=== PATIENT | male | born 1975 | race Caucasian/White ===

== ENCOUNTER 2020-01-17 14:04 | Outpatient (REF) | payer MEDICAID, SELFPAY ==
--- NOTE | 2020-01-17 14:11 | CT_ITS ---
EXAMINATION: CT PELVIS WITHOUT CONTRAST CLINICAL INFORMATION: Laceration left gluteal muscles. Evaluate for foreign body/glass. COMPARISON: None TECHNIQUE: Helical scanning was performed with submillimeter collimation through the pelvis. Sagittal and coronal multiplanar 2-D reconstructions were obtained. This CT examination was performed using dose optimization techniques as appropriate, variously including the following: *Automated exposure control *Adjustment of mA and/or kV according to patient size (this includes techniques or standardized protocols for targeted exams where dose is matched to indication/reason for exam; i.e. extremities or head) *Use of iterative reconstruction technique DLP: 504 mGy-cm FINDINGS: PELVIS: There is mild diverticulosis of the colon. Small and large bowel is otherwise unremarkable. The prostate gland does not appear enlarged. The bladder is unremarkable. Vascular structures are unremarkable. No ascites or adenopathy is seen. No significant hernia is seen. No foreign body is seen. There is slight skin thickening and stranding of the subcutaneous fat in the left gluteal region. No abnormal air or fluid collection is seen. OSSEOUS STRUCTURES: There is left-sided facet arthritis at L5-S1. Bony structures are otherwise unremarkable. CT/CT pelvis wo con IMPRESSION: No foreign body seen. Mild diverticulosis of the colon.
== END 2020-01-17 14:05 | disposition home or self-care (01) ==
LOC: HO.CT 14:04
PROVIDERS: Visit Provider Internal Medicine
DX: S31.821A Laceration without foreign body of left buttock, initial encounter (principal); X58.XXXA Exposure to other specified factors, initial encounter; Y93.9 Activity, unspecified; Y92.9 Unspecified place or not applicable; Y99.8 Other external cause status
CPT/HCPCS: 72192

== ENCOUNTER → 2020-05-09 09:56 | Outpatient (REF) | payer MEDICAID, SELFPAY | LOC: HO.SL 09:56 | PROVIDERS: PCP Internal Medicine; Visit Provider Internal Medicine | DX: G47.9 Sleep disorder, unspecified (principal); R06.83 Snoring | CPT/HCPCS: 95806 ==

== ENCOUNTER → 2020-05-29 14:23 | Outpatient (BNVA) | payer MEDICAID, SELFPAY | PROVIDERS: PCP Internal Medicine; Visit Provider Internal Medicine | DX: E66.9 Obesity, unspecified (principal); G47.33 Obstructive sleep apnea (adult) (pediatric) | CPT/HCPCS: 99202 ==

== ENCOUNTER 2020-09-20 13:04 | Outpatient (REF) | payer MEDICAID, SELFPAY ==
--- NOTE | ~2020-09-20 | MR_ITS ---
EXAMINATION: MR LUMBAR SPINE WITHOUT CONTRAST CLINICAL INFORMATION: Radiculopathy with pain left leg. COMPARISON: CT scan of the pelvis 01/17/2020. TECHNIQUE: MRI of the lumbar spine was obtained using routine sequences without contrast. FINDINGS: VERTEBRAL BODIES AND PARASPINAL STRUCTURES: There is mild hyperlordosis in the lower lumbar spine, and there is a mild retrolisthesis of L4 on L5. There is mild loss of intervertebral disc height and signal from the disc at L4-L5. There are small Schmorl's nodes at multiple levels in the mid and upper lumbar spine. The vertebral bodies have normal height and contour and no fractures are demonstrated. Overall, marrow signal is homogenous. The visualized retroperitoneal and pelvic structures are unremarkable. CONUS MEDULLARIS AND CAUDA EQUINA: Normal, terminating at the level of T12-L1. The lower thoracic spinal cord appears normal. The cauda equina nerve roots and filum terminale appear normal. SPINAL LEVELS: L1-L2: The facet joints appear normal bilaterally. Disc contour is normal. There is no central stenosis or foraminal narrowing. L2-L3: The facet joints appear normal bilaterally. Disc contour is normal. There is no central stenosis or foraminal narrowing. L3-L4: The facet joints appear normal. Disc contour is normal. There is no central stenosis or foraminal narrowing. L4-L5: There is moderate bilateral facet arthropathy with facet joint effusions. There is a broad-based posterior disc protrusion which distorts the ventral thecal sac. There is equivocal impingement on the traversing L5 nerve roots bilaterally. There is no central stenosis, and there is no foraminal nerve root impingement. L5-S1: There is severe left and mild to moderate right facet arthropathy. There is a small synovial cyst posteriorly off the left facet joint. The left lamina shorter compared to the right. Posterior disc contour is normal. The neural foramina are patent bilaterally. There is no central stenosis. MR/MR lumbar spine wo con IMPRESSION: 1. At L4-L5 there is moderate facet arthropathy and there is a broad-based posterior disc protrusion with equivocal impingement on the traversing L5 nerve roots. There is no central stenosis or foraminal nerve root impingement. 2. There is severe left facet arthropathy at L5-S1 with with a synovial cyst posteriorly. The left L5 lamina is shorter compared to the right. Posterior disc contour is normal and there is no foraminal narrowing or central stenosis.
== END 2020-09-20 13:05 | disposition home or self-care (01) ==
LOC: HO.MRI 13:04
PROVIDERS: PCP Internal Medicine; Visit Provider Internal Medicine
DX: M54.16 Radiculopathy, lumbar region (principal); M79.605 Pain in left leg
CPT/HCPCS: 72148

== ENCOUNTER 2021-01-06 12:41 | Outpatient (REF) | payer MEDICAID, SELFPAY ==
[2021-01-06 12:55] LABS: MANUAL DIFF FLAG NO
[2021-01-06 13:38] LABS: Basophils Percent Auto 0.4 % (0-2); Eosinophils Absolute Auto 0.2 X10*3/uL (0.0-0.4); Eosinophils Percent Auto 3.1 % (0-4); Hematocrit 45.7 % (42.0-52.0); Hemoglobin 15.6 g/dl (14.0-18.0); Imm Gran Abs Auto 0.03 X10*3/uL (0.00-0.03); Imm Gran Pct Auto 0.4 % (0.0-0.4); Lymphocytes Absolute Auto 1.6 X10*3/uL (1.2-4.9); Lymphocytes Percent Auto 21.1 % (20-40); Mean Corpuscular HGB Conc 34.1 g/dl (31.0-36.0); Mean Corpuscular Hemoglobin 31.7 pg (27.0-33.0); Mean Corpuscular Volume 92.9 fL (80.0-98.0); Mean Platelet Volume 10.8 fL (9.4-12.4); Monocytes Absolute Auto 0.8 X10*3/uL (0.1-1.2); Monocytes Percent Auto 10.6 % (2-11); Neutrophils Absolute Auto 4.7 x10*3/uL (2.0-8.3); Neutrophils Percent Auto 64.4 % (45-73); Platelet Count 269 X10*3/uL (160-400); Red Blood Count 4.92 X10*6/uL (4.60-5.80); Red Cell Distribution Width 12.2 % (11.0-16.0); White Blood Count 7.3 X10*3/uL (4.8-10.8)
[2021-01-06 13:58] LABS: Alanine Aminotransferase 95 U/L (0-40); Albumin Level 4.4 g/dL (3.5-5.0); Alkaline Phosphatase 66 U/L (39-117); Anion Gap 11 (12-20); Aspartate Amino Transferase 59 U/L (5-37); Blood Urea Nitrogen 17 mg/dL (9-16); C Reactive Protein 0.22 mg/dL (< or = 0.50); Calcium 9.7 mg/dL (8.4-10.2); Carbon Dioxide 26 mmol/L (22-29); Chloride 105 mmol/L (96-108); Cholesterol 149 mg/dL; Estimated Glomerular Filt Rate > 60; Glucose Fasting 95 mg/dL (60-99); HDL Cholesterol 47 mg/dL; LDL Cholesterol Calculated 79 mg/dl; Potassium 4.4 mmol/L (3.3-5.1); Sodium 138 mmol/L (135-145); Total Protein 7.6 g/dL (6.5-8.0); Triglycerides 115 mg/dL
[2021-01-06 14:18] LABS: Thyroid Stimulating Hormone 0.66 uIU/mL (0.32-4.0)
[2021-01-06 14:33] LABS: Vitamin B12 423 pg/mL (200-900)
[2021-01-10 16:41] LABS: Testosterone, Free 89.1 pg/mL (35.0-155.0); Testosterone, Total 484 ng/dL (250-1100)
== END 2021-01-06 12:42 | disposition home or self-care (01) ==
LOC: HO.LAB 12:41
PROVIDERS: PCP Internal Medicine; Visit Provider Internal Medicine
DX: Z00.00 Encounter for general adult medical examination without abnormal findings (principal); I10 Essential (primary) hypertension; H53.8 Other visual disturbances; R53.83 Other fatigue
CPT/HCPCS: 36415; 80053; 80061; 82607; 84402; 84403; 84443; 85025; 86140

== ENCOUNTER 2021-01-28 11:48 | Outpatient (REF) | payer MEDICAID, SELFPAY ==
--- NOTE | ~2021-01-28 | US_ITS ---
EXAMINATION: US ABDOMEN COMPLETE CLINICAL INFORMATION: Elevated LFTs. ?gallbladder disease. COMPARISON: CT pelvis 01/17/2020 TECHNIQUE: Real-time imaging of the abdominal viscera. FINDINGS: PANCREAS: Normal. ABDOMINAL AORTA: The proximal, mid, and distal segments are normal in caliber. INFERIOR VENA CAVA: Visualized portions are normal. LIVER: The liver is normal in size. The liver contour is normal. There is increased liver echogenicity with areas of focal fatty sparing in the lily hepatis. It measures approximately 2.2 x 1.5 x 2.1 cm. No focal hepatic lesion. There is no intrahepatic biliary duct dilatation seen. GALLBLADDER: The gallbladder is physiologically distended without evidence of stones, sludge, wall thickening or pericholecystic fluid. There is nonmobile echogenic polyp measuring 0.4 x 0 0.5 to 0.3 cm. Gallbladder wall thickness measures 0.16 cm COMMON BILE DUCT: Normal in caliber measuring 0.38 cm in diameter. RIGHT KIDNEY: Normal. No hydronephrosis. No renal calculi or focal parenchymal lesions. The kidney measures 12.2 cm in maximum dimension. LEFT KIDNEY: Normal. No hydronephrosis. No renal calculi or focal parenchymal lesions. The kidney measures 11.0 cm in maximum dimension. SPLEEN: Normal. The spleen measures 11.5 cm in maximum dimension. FREE FLUID: None. US/US abdomen complete IMPRESSION: Diffuse echogenic liver with area of focal fatty sparing at the lily hepatis. Nonmobile echogenic gallbladder polyp. No echogenic stones or hydronephrosis. Rest of the abdominal ultrasound is unremarkable.
[2021-01-29 08:25] LABS: HBsAGNum1 0.24 S/CO (0.00-0.99); Hepatitis B Surface Antigen Negative (Negative)
[2021-01-29 08:32] LABS: ~HepC Num1 0.12 S/CO (0.00-0.79); ~Hepatitis B Surface Antibody NONREACTIVE (Nonreactive); ~Hepatitis C Antibody Nonreactive (Nonreactive)
== END 2021-01-28 11:49 | disposition home or self-care (01) ==
LOC: HO.HMGCX 11:48
PROVIDERS: PCP Internal Medicine; Visit Provider Internal Medicine
DX: R74.01 Elevation of levels of liver transaminase levels (principal)
CPT/HCPCS: 36415; 76700; 86706; 86803; 87340

== ENCOUNTER → 2021-02-07 10:32 | Outpatient (BNVA) | payer MEDICAID, SELFPAY | PROVIDERS: PCP Internal Medicine; Referring Provider Internal Medicine; Visit Provider Nurse Practitioner Family | DX: Z12.11 Encounter for screening for malignant neoplasm of colon (principal); K64.9 Unspecified hemorrhoids | CPT/HCPCS: 99202 ==

== ENCOUNTER → 2021-03-12 12:52 | Outpatient (BNVA) | payer MEDICAID, SELFPAY | PROVIDERS: PCP Internal Medicine; Referring Provider Nurse Practitioner Family; Visit Provider Surgery | DX: K64.4 Residual hemorrhoidal skin tags (principal) | CPT/HCPCS: 46600; 99202 ==

== ENCOUNTER 2021-11-10 10:07 | Outpatient (REF) | payer MEDICAID, SELFPAY ==
--- NOTE | ~2021-11-10 | FL_ITS ---
EXAMINATION: FL UPPER GI SERIES CLINICAL INFORMATION: Gastroesophageal reflux disease. COMPARISON: None TECHNIQUE: Routine upper GI air-contrast study was performed. FINDINGS: Following oral administration of thick barium and effervescent granules in upright view there is normal propagation of bolus from the oral cavity through the pharynx, esophagus into stomach without any evidence of obstruction, narrowing or stricture. On placing patient lying supine and prone, the course, caliber and peristalsis of the stomach and the duodenum are normal. There is moderate to large gastroesophageal reflux but no hiatal hernia seen. The mucosal pattern of the stomach, duodenal bulb and the sweep is normal. FLUOROSCOPY TIME: 1.6 minutes. DOSE AREA PRODUCT: 39.604 uGy-m2 (microgray-meter squared) FL/FL upper GI series IMPRESSION: Large gastroesophageal reflux without hiatal hernia.
== END 2021-11-10 10:08 | disposition home or self-care (01) ==
LOC: HO.XRAY 10:07
PROVIDERS: PCP Internal Medicine; Visit Provider Internal Medicine
DX: K21.9 Gastro-esophageal reflux disease without esophagitis (principal)
CPT/HCPCS: 74240

== ENCOUNTER 2022-03-06 07:28 | Day surgery (SDC) | payer MEDICAID, SELFPAY ==
--- NOTE | 2022-03-05 12:12 | HO.ANESPROP2 ---
Documented by User: Nia Mackay NP 03/05/22 12:12 HPI - Anesthesia Eval Consult details Narrative: 46yo M for Colonoscopy PMFSH Active Problems Active Problems: All Active Problems (Updated 04/25/21 @ 13:01 by Emily Johnson RN) External hemorrhoids with complication (Acute) SHIELA (obstructive sleep apnea) (Acute) Obesity (BMI 30-39.9) (Acute) Past Medical History Medical History Anxiety External hemorrhoids with complication HTN (hypertension) Obesity (BMI 30-39.9) SHIELA (obstructive sleep apnea) Family History Family History Father Diabetes Mother Heart disease Diabetes COPD (chronic obstructive pulmonary disease) Maternal Grandfather Diabetes Maternal Grandmother Diabetes Heart attack Surgical History Surgical History Hx of appendectomy Hx of neck surgery Social History Social History Alcohol intake: current Alcohol intake frequency: a few times a week Patient Tobacco Use Status: Current someday Tobacco user Tobacco use type: Cigarette Cigarette Packs Per Day: 0.5 Cigarettes Per Day: 10.0 Years Smoked: 30 Smoked in Last 30 Days: Yes Use of substances other than those prescribed or required for medical reasons: Yes Substance Use Type: Marijuana Substance Use Frequency: Occasionally Are you DNR?: No Advance Directives: No Advance Directives Information Provided: Yes Meds Allergies Allergy/AdvReac Type Severity Reaction Status Date / Time penicillin G Allergy Unknown unknown Verified 03/06/22 07:40 Home Medications Medication Instructions Recorded Confirmed Last Taken Type buspirone 5 mg tablet 5 mg PO BID PRN Anxiety 05/29/20 03/06/22 Unknown History losartan 50 mg tablet 50 mg PO DAILY 05/29/20 03/06/22 Unknown History tadalafil 5 mg tablet 1 tab PO DAILY 04/25/21 03/06/22 Unknown History omeprazole 20 mg capsule,delayed 1 cap PO DAILY 03/06/22 03/06/22 Unknown History release Exam Exam Date and Time: March 05, 2022 121 Assessment and Plan Assessment Anesthesia Assessment: Chart Reviewed Documented by User: Katy Gaitan MD 03/06/22 08:21 [facility] Past Medical History Medical History Anxiety External hemorrhoids with complication HTN (hypertension) Obesity (BMI 30-39.9) SHIELA (obstructive sleep apnea) Family History Family History Father Diabetes Mother Heart disease Diabetes COPD (chronic obstructive pulmonary disease) Maternal Grandfather Diabetes Maternal Grandmother Diabetes Heart attack Family history of problems with anesthesia: No Surgical History Surgical History Hx of appendectomy Hx of neck surgery History of Problems with Anesthesia: No Social History Social History Alcohol intake: current Alcohol intake frequency: a few times a week Patient Tobacco Use Status: Current someday Tobacco user Tobacco use type: Cigarette Cigarette Packs Per Day: 0.5 Cigarettes Per Day: 10.0 Years Smoked: 30 Smoked in Last 30 Days: Yes Use of substances other than those prescribed or required for medical reasons: Yes Substance Use Type: Marijuana Substance Use Frequency: Occasionally Are you DNR?: No Advance Directives: No Advance Directives Information Provided: Yes Meds Allergies Allergy/AdvReac Type Severity Reaction Status Date / Time penicillin G Allergy Unknown unknown Verified 03/06/22 07:40 Home Medications Medication Instructions Recorded Confirmed Last Taken Type buspirone 5 mg tablet 5 mg PO BID PRN Anxiety 05/29/20 03/06/22 Unknown History losartan 50 mg tablet 50 mg PO DAILY 05/29/20 03/06/22 Unknown History tadalafil 5 mg tablet 1 tab PO DAILY 04/25/21 03/06/22 Unknown History omeprazole 20 mg capsule,delayed 1 cap PO DAILY 03/06/22 03/06/22 Unknown History release Exam Airway Mallampati Class: II TM Dist: >3cm Neck ROM: Full Heart: rrr Lungs: cta Assessment and Plan Assessment Anesthesia Assessment: Anesthesia Plan Discussed Final Anesthetic Review Family History of Problems with Anesthesia: No History of Problems with Anesthesia: No NPO: Yes ASA Class: III Final Preanesthetic Review: No Changes in Pt Med Stat, Meds/Allgs Chart Reviewed and Consent Obtained/Reviewed Patient Risk: Intermediate Procedure Risk: Intermediate Anesthetic Plan Anesthetic Plan: MAC: Disposition: Standard PACU
[2022-03-06 07:42] VITALS: BMI 35.0
[2022-03-06 07:47] VITALS: BP 133/87; PULSE 66; RESP 16; TEMP 36.2; O2SAT 97
--- NOTE | 2022-03-06 07:52 | MHC.SHP ---
Pre-Procedural Eval Section A Date of Service: 03/06/22 The patient is an INPATIENT: No Changes since office visit: Yes Patient answered all questions; No Cold of Flu in the past 2 weeks, No New Medical Problems and No Changes in Medication The History & Physical has been completed within 30 days and I have reviewed it.: Yes Section B Chief Complaint: hemorrhoids Allergies: Allergies Allergy/AdvReac Type Severity Reaction Status Date / Time penicillin G Allergy Unknown unknown Verified 03/06/22 07:40 Plan I have reviewed the history and physical and performed a pertinent physical examination on my patient. No changes have occurred unless specified. Time Spent With Patient Time: Total time managing care of this patient today ____ minutes.
[2022-03-06] MEDS: Lactated Ringers 1,000 ML 100 ML IVCONT (08:08)
--- NOTE | 2022-03-06 08:35 | PM.OP ---
Brief Operative Note Date of Service: 03/06/22 Pre-op diagnosis: rectal bleeding Post-op diagnosis: other (Diverticulosis, hemorrhoids) Procedure: COLONOSCOPY TILL CECUM Surgeon: Mckenna Souza MD Anesthesia: MAC Was an Web Communications Specialist used for this Procedure?: Yes Web Communications Specialist: Joesph Pollard Estimated blood loss (mL): 0 Pathology: none sent Condition: stable Disposition: PACU
--- NOTE | 2022-03-06 08:37 | W.PM.OPN ---
Operative Note Operative Note Date of Service: 03/06/22 Narrative: COLONOSCOPY TILL CECUM Consent: Indications for the procedure and potential complications of bleeding, perforation, reaction to medications and missed diagnosis were discussed with the patient and informed consent was obtained. Instrument: Olympus PCF H 190 L variable stiffness pediatric colonoscope Monitoring: Vital signs and clinical assessment, intermittent blood pressure monitoring, continuous EKG monitoring, Pulse oximetry and Carbon Dioxide monitoring were done throughout the procedure. Colon withdrawl time was 20 minutes. Procedure: The patient was placed in the left lateral decubitis position and pre-procedure medications were administered. After a digital rectal examination of the ano-rectum, the video colonoscope was inserted into the rectum and advanced through the colon to the cecum. The colonoscope was slowly withdrawn in a retrograde panoramic fashion and the colon mucosa was carefully examined including a retroflexed view of the rectum. Findings and interventions are described below. Procedure Difficulty: Without difficulty Findings: Terminal Ileum: Not evaluated Cecum: Normal Ascending Colon: Normal Transverse Colon: Normal Descending Colon: Normal Sigmoid Colon: Moderate diverticulosis Rectum: Normal Ano-rectum: Moderate internal hemorrhoids Colon preparation: Excellent Impression and Post Procedure Diagnosis: Colonoscopy Findings: No polyps were detected Moderate diverticulosis seen in the sigmoid colon Moderate hemorrhoids on retroflexed exam. Plan: Patient has an appointment on 03/27/22 in the GI Clinic with Radha Seaman FNP-BC. Repeat Colonoscopy in 10 years (pt reports his Dad had colon polyps at an advanced age in his 70's). Above findings were reviewed with the patient and Hemorrhoids and diverticulosis handouts were given in the discharge area. Pt advised to start a fibre supplement and hydrocortisone cream for hemorrhoids. Pt can be referred to General surgery if he continues to have rectal bleeding.
[2022-03-06 09:12] VITALS: BP 93/62; PULSE 70; RESP 16; TEMP 37.1; O2SAT 95
[2022-03-06 09:27] VITALS: BP 137/82; PULSE 72; RESP 18; TEMP 36.9; O2SAT 97
== END 2022-03-06 09:56 | disposition home or self-care (01) ==
PROVIDERS: PCP Internal Medicine; Visit Provider Internal Medicine Gastroenterology
PROC: 0DJD8ZZ Inspection of Lower Intestinal Tract, Via Natural or Artificial Opening Endoscopic (ICD-10-PCS; CPT 45378; principal; 2022-03-06 08:30)
DX: Z12.11 Encounter for screening for malignant neoplasm of colon (principal); Z83.71 Family history of colonic polyps; K64.8 Other hemorrhoids; K57.30 Diverticulosis of large intestine without perforation or abscess without bleeding; G47.33 Obstructive sleep apnea (adult) (pediatric); I10 Essential (primary) hypertension; E66.9 Obesity, unspecified; Z68.37 Body mass index [BMI] 37.0-37.9, adult; F17.210 Nicotine dependence, cigarettes, uncomplicated; F12.90 Cannabis use, unspecified, uncomplicated; Z79.899 Other long term (current) drug therapy; Z88.0 Allergy status to penicillin
CPT/HCPCS: 45378

== ENCOUNTER → 2022-03-27 08:53 | Outpatient (BNVA) | payer MEDICAID, SELFPAY | PROVIDERS: PCP Internal Medicine; Visit Provider Nurse Practitioner Family | DX: K64.8 Other hemorrhoids (principal); K57.90 Diverticulosis of intestine, part unspecified, without perforation or abscess without bleeding; I10 Essential (primary) hypertension | CPT/HCPCS: 99212 ==

== ENCOUNTER 2022-06-08 14:58 | Outpatient (REF) | payer MEDICAID, SELFPAY ==
[2022-06-08 15:32] LABS: MANUAL DIFF FLAG NO
[2022-06-08 17:15] LABS: Basophils Percent Auto 0.4 % (0-2); Eosinophils Absolute Auto 0.3 X10*3/uL (0.0-0.4); Eosinophils Percent Auto 4.3 % (0-4); Hematocrit 44.4 % (42.0-52.0); Hemoglobin 15.4 g/dl (14.0-18.0); Imm Gran Abs Auto 0.02 X10*3/uL (0.00-0.03); Imm Gran Pct Auto 0.3 % (0.0-0.4); Lymphocytes Absolute Auto 1.6 X10*3/uL (1.2-4.9); Lymphocytes Percent Auto 24.1 % (20-40); Mean Corpuscular HGB Conc 34.7 g/dl (31.0-36.0); Mean Corpuscular Hemoglobin 31.8 pg (27.0-33.0); Mean Corpuscular Volume 91.7 fL (80.0-98.0); Mean Platelet Volume 11.6 fL (9.4-12.4); Monocytes Absolute Auto 0.9 X10*3/uL (0.1-1.2); Monocytes Percent Auto 12.6 % (2-11); Neutrophils Percent Auto 58.3 % (45-73); Platelet Count 205 X10*3/uL (160-400); Red Blood Count 4.84 X10*6/uL (4.60-5.80); Red Cell Distribution Width 11.9 % (11.0-16.0); White Blood Count 6.8 X10*3/uL (4.8-10.8)
[2022-06-08 17:45] LABS: Alanine Aminotransferase 39 U/L (0-40); Alkaline Phosphatase 60 U/L (39-117); Anion Gap 12 (12-20); Aspartate Amino Transferase 24 U/L (5-37); Bilirubin Total 0.6 mg/dL (0.0-1.0); Blood Urea Nitrogen 19 mg/dL (9-16); Calcium 9.3 mg/dL (8.4-10.2); Carbon Dioxide 26 mmol/L (22-29); Chloride 106 mmol/L (96-108); Estimated Glomerular Filt Rate > 60; Glucose Random 95 mg/dL (60-115); Potassium 4.3 mmol/L (3.3-5.1); Sodium 140 mmol/L (135-145); Total Protein 7.1 g/dL (6.5-8.0)
== END 2022-06-08 14:59 | disposition home or self-care (01) ==
LOC: HO.LAB 14:58
PROVIDERS: PCP Internal Medicine; Visit Provider Internal Medicine
DX: I10 Essential (primary) hypertension (principal); K21.9 Gastro-esophageal reflux disease without esophagitis
CPT/HCPCS: 36415; 80053; 85025

== ENCOUNTER 2022-12-23 10:00 | Outpatient (REF) | payer MEDICAID, SELFPAY ==
[2022-12-23 10:14] LABS: MANUAL DIFF FLAG NO
[2022-12-23 10:41] LABS: Basophils Absolute Auto 0.1 X10*3/uL (0.0-0.2); Basophils Percent Auto 0.8 % (0-2); Eosinophils Absolute Auto 0.2 X10*3/uL (0.0-0.4); Eosinophils Percent Auto 3.4 % (0-4); Imm Gran Abs Auto 0.02 X10*3/uL (0.00-0.03); Imm Gran Pct Auto 0.3 % (0.0-0.4); Lymphocytes Absolute Auto 1.3 X10*3/uL (1.2-4.9); Lymphocytes Percent Auto 20.8 % (20-40); Mean Corpuscular HGB Conc 33.3 g/dl (31.0-36.0); Mean Corpuscular Hemoglobin 31.6 pg (27.0-33.0); Mean Corpuscular Volume 94.7 fL (80.0-98.0); Mean Platelet Volume 10.5 fL (9.4-12.4); Monocytes Absolute Auto 0.7 X10*3/uL (0.1-1.2); Monocytes Percent Auto 11.4 % (2-11); Neutrophils Absolute Auto 3.9 x10*3/uL (2.0-8.3); Neutrophils Percent Auto 63.3 % (45-73); Platelet Count 265 X10*3/uL (160-400); Red Blood Count 4.75 X10*6/uL (4.60-5.80); Red Cell Distribution Width 11.9 % (11.0-16.0); White Blood Count 6.2 X10*3/uL (4.8-10.8)
[2022-12-23 11:14] LABS: Alanine Aminotransferase 137 U/L (0-40); Albumin Level 4.5 g/dL (3.5-5.0); Alkaline Phosphatase 61 U/L (39-117); Anion Gap 12 (12-20); Aspartate Amino Transferase 58 U/L (5-37); Bilirubin Total 0.9 mg/dL (0.0-1.0); Blood Urea Nitrogen 16 mg/dL (9-16); Calcium 9.8 mg/dL (8.4-10.2); Carbon Dioxide 26 mmol/L (22-29); Chloride 105 mmol/L (96-108); Cholesterol 152 mg/dL (<200); Estimated Glomerular Filt Rate > 60; Glucose Fasting 91 mg/dL (60-99); HDL Cholesterol 57 mg/dL (>40); LDL Cholesterol Calculated 84 mg/dL (<100); Potassium 4.6 mmol/L (3.3-5.1); Sodium 138 mmol/L (135-145); Triglycerides 57 mg/dL (<150)
== END 2022-12-23 10:01 | disposition home or self-care (01) ==
LOC: HO.LAB 10:00
PROVIDERS: PCP Internal Medicine; Visit Provider Internal Medicine
DX: I10 Essential (primary) hypertension (principal); K21.9 Gastro-esophageal reflux disease without esophagitis; Z82.49 Family history of ischemic heart disease and other diseases of the circulatory system
CPT/HCPCS: 36415; 80053; 80061; 85025

== ENCOUNTER 2023-01-26 11:34 | Outpatient (REF) | payer MEDICAID, SELFPAY ==
[2023-01-26 12:52] LABS: Hepatitis B Surface Antigen Negative (Negative); ~HepC Num1 0.18 S/CO (0.00-0.79); ~Hepatitis C Antibody Nonreactive (Nonreactive)
== END 2023-01-26 11:35 | disposition home or self-care (01) ==
LOC: HO.LAB 11:34
PROVIDERS: PCP Internal Medicine; Visit Provider Internal Medicine
DX: R79.89 Other specified abnormal findings of blood chemistry (principal)
CPT/HCPCS: 36415; 86803; 87340

== ENCOUNTER 2023-06-23 11:46 | Outpatient (REF) | payer MEDICAID, SELFPAY ==
[2023-06-23 12:08] LABS: MANUAL DIFF FLAG NO
[2023-06-23 13:02] LABS: Basophils Percent Auto 0.5 % (0-2); Eosinophils Absolute Auto 0.2 X10*3/uL (0.0-0.4); Eosinophils Percent Auto 3.2 % (0-4); Hematocrit 43.6 % (42.0-52.0); Hemoglobin 15.1 g/dl (14.0-18.0); Imm Gran Abs Auto 0.01 X10*3/uL (0.00-0.03); Imm Gran Pct Auto 0.2 % (0.0-0.4); Lymphocytes Absolute Auto 1.6 X10*3/uL (1.2-4.9); Lymphocytes Percent Auto 27.9 % (20-40); Mean Corpuscular HGB Conc 34.6 g/dl (31.0-36.0); Mean Corpuscular Hemoglobin 32.4 pg (27.0-33.0); Mean Corpuscular Volume 93.6 fL (80.0-98.0); Mean Platelet Volume 10.2 fL (9.4-12.4); Monocytes Absolute Auto 0.6 X10*3/uL (0.1-1.2); Neutrophils Absolute Auto 3.4 x10*3/uL (2.0-8.3); Neutrophils Percent Auto 58.2 % (45-73); Platelet Count 240 X10*3/uL (160-400); Red Blood Count 4.66 X10*6/uL (4.60-5.80); Red Cell Distribution Width 12.1 % (11.0-16.0); White Blood Count 5.9 X10*3/uL (4.8-10.8)
[2023-06-23 13:55] LABS: Alanine Aminotransferase 108 U/L (0-40); Albumin Level 4.6 g/dL (3.5-5.0); Alkaline Phosphatase 66 U/L (39-117); Anion Gap 12 (12-20); Aspartate Amino Transferase 54 U/L (5-37); Bilirubin Total 1.2 mg/dL (0.0-1.0); Blood Urea Nitrogen 19 mg/dL (9-16); Calcium 9.7 mg/dL (8.4-10.2); Carbon Dioxide 28 mmol/L (22-29); Chloride 102 mmol/L (96-108); Estimated Glomerular Filt Rate > 60; Glucose Random 83 mg/dL (60-115); Potassium 3.9 mmol/L (3.3-5.1); Sodium 138 mmol/L (135-145); Total Protein 8.2 g/dL (6.5-8.0)
== END 2023-06-23 11:47 | disposition home or self-care (01) ==
LOC: HO.LAB 11:46
PROVIDERS: PCP Internal Medicine; Visit Provider Internal Medicine
DX: I10 Essential (primary) hypertension (principal); K21.9 Gastro-esophageal reflux disease without esophagitis; R79.89 Other specified abnormal findings of blood chemistry
CPT/HCPCS: 36415; 80053; 85025

== ENCOUNTER 2023-06-29 13:40 | Outpatient (REF) | payer MEDICAID, SELFPAY ==
--- NOTE | ~2023-06-29 | US_ITS ---
EXAMINATION: US ABDOMEN COMPLETE CLINICAL INFORMATION: Elevated LFTs. COMPARISON: Ultrasound abdomen complete 01/28/2021. TECHNIQUE: Real-time imaging of the abdominal viscera. FINDINGS: PANCREAS: Normal. ABDOMINAL AORTA: The proximal, mid, and distal segments are normal in caliber. INFERIOR VENA CAVA: Visualized portions are normal. LIVER: The liver is normal in size. The liver contour is normal. Markedly increased hepatic echogenicity with focal fatty sparing compatible with hepatic steatosis. No focal hepatic lesion. There is no intrahepatic biliary duct dilatation seen. GALLBLADDER: Sessile 7 mm gallbladder polyp. The gallbladder is physiologically distended without evidence of stones, sludge, wall thickening or pericholecystic fluid. COMMON BILE DUCT: Normal in caliber measuring 0.2 cm in diameter. RIGHT KIDNEY: Normal. No hydronephrosis. No renal calculi or focal parenchymal lesions. The kidney measures 12.0 cm in maximum dimension. LEFT KIDNEY: Normal. No hydronephrosis. No renal calculi or focal parenchymal lesions. The kidney measures 10.6 cm in maximum dimension. SPLEEN: Normal. The spleen measures 11.0 cm in maximum dimension. FREE FLUID: None. US/US abdomen complete IMPRESSION: 1. Hepatic steatosis. 2. A sessile gallbladder polyp measuring 7 mm. Recommend 12 month follow-up ultrasound.
== END 2023-06-29 13:41 | disposition home or self-care (01) ==
LOC: HO.US 13:40
PROVIDERS: PCP Internal Medicine; Visit Provider Internal Medicine
DX: R94.5 Abnormal results of liver function studies (principal)
CPT/HCPCS: 76700

== ENCOUNTER 2024-04-14 11:46 | Outpatient (REF) | payer MEDICAID, SELFPAY ==
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
[2024-04-14 13:03] LABS: MANUAL DIFF FLAG NO
[2024-04-14 13:15] LABS: Basophils Absolute Auto 0.1 X10*3/uL (0.0-0.2); Basophils Percent Auto 0.7 % (0-2); Eosinophils Absolute Auto 0.2 X10*3/uL (0.0-0.4); Eosinophils Percent Auto 2.7 % (0-4); Hematocrit 45.8 % (42.0-52.0); Hemoglobin 15.6 g/dl (14.0-18.0); Imm Gran Abs Auto 0.01 X10*3/uL (0.00-0.03); Imm Gran Pct Auto 0.1 % (0.0-0.4); Lymphocytes Absolute Auto 1.4 X10*3/uL (1.2-4.9); Lymphocytes Percent Auto 20.7 % (20-40); Mean Corpuscular HGB Conc 34.1 g/dl (31.0-36.0); Mean Corpuscular Hemoglobin 32.6 pg (27.0-33.0); Mean Corpuscular Volume 95.6 fL (80.0-98.0); Mean Platelet Volume 11.1 fL (9.4-12.4); Monocytes Absolute Auto 0.7 X10*3/uL (0.1-1.2); Monocytes Percent Auto 10.3 % (2-11); Neutrophils Absolute Auto 4.5 x10*3/uL (2.0-8.3); Neutrophils Percent Auto 65.5 % (45-73); Platelet Count 186 X10*3/uL (160-400); Red Blood Count 4.79 X10*6/uL (4.60-5.80); White Blood Count 6.9 X10*3/uL (4.8-10.8)
[2024-04-14 13:58] LABS: Alanine Aminotransferase 181 U/L (0-40); Albumin Level 4.6 g/dL (3.5-5.0); Alkaline Phosphatase 73 U/L (39-117); Anion Gap 13 (12-20); Aspartate Amino Transferase 66 U/L (5-37); Bilirubin Total 1.1 mg/dL (0.0-1.0); Blood Urea Nitrogen 20 mg/dL (9-16); Carbon Dioxide 27 mmol/L (22-29); Chloride 103 mmol/L (96-108); Estimated Glomerular Filt Rate > 60; Glucose Random 103 mg/dL (60-115); Potassium 4.8 mmol/L (3.3-5.1); Sodium 138 mmol/L (135-145); Total Protein 8.6 g/dL (6.5-8.0)
== END 2024-04-14 11:47 | disposition home or self-care (01) ==
LOC: HO.10HDL 11:46
PROVIDERS: Visit Provider Internal Medicine
DX: I10 Essential (primary) hypertension (principal); K21.9 Gastro-esophageal reflux disease without esophagitis; R74.01 Elevation of levels of liver transaminase levels
CPT/HCPCS: 36415; 80053; 85025

== ENCOUNTER 2024-04-28 12:08 | Outpatient (AMB) | payer MEDICAID, SELFPAY ==
--- NOTE | 2024-04-28 12:24 | A.OFFVIS_ITS ---
Vital Signs 04/28/24 12:26 Height 5 ft 10 in Weight 238 lb 8.642 oz BMI 34.2 BP 138/88 Blood Pressure Location Rt brachial Position Sitting Pulse 68 Pulse Source Pulse Oximeter Pulse Oximetry (%) 96 Oxygen Delivery Method Room Air Intake Visit Reasons: f/u Intake Note: ESTABLISHED PATIENT for mgmt of constipation, hemorrhoids, and abn labs. ABRAHAN + [place] 2022. FUV determined PRN Chief Complaint; C/O occasional fecal abn, loose stools more frequently than constipation. Bloating, w/o abd pain. Reflux seems controlled with omeprazole per pt. Pt also making dietary adjustments as needed. No additional concerns at this time. Provider Network Manager Required: No Accompanied by: Self / Same As Patient Allergies penicillin G Allergy (Unknown, Verified 04/28/24 12:25) unknown HPI HPI f/u: Details: LAST VISIT: Diverticulosis Discussed with patient importance of high-fiber diet. I will start him on MiraLax. Internal hemorrhoids without complication Patient denies any rectal pain or bleed. Seen General surgery for consult back in 2020, however patient reports that he opted not to go for surgical procedure due to long recovery after and pain. Patient states that he has been doing well. I will send a script for stool softener and he can take every evening or every other evening. Will send Proctosol he can use it when he has rectal pain. Patient will call us if he will change his mind. I will see him on as needed basis. Patient is agreeable to this plan and verbalizes understanding of instructions. He was given the opportunity to ask questions and all questions answered ? Thank you for allowing me to participate in his care Plan Medications New docusate sodium 100 mg PO BEDTIME PRN 30 caps 3RF constipation K59.00 polyethylene glycol 3350 (Miralax) 17 grams PO DAILY 510 grams 2RF hydrocortisone 2.5% (Proctosol HC) 1 appl ID BID-QID PRN 30 grams 2RF hemorrhoids K64.9 TODAY'S VISIT: Patient is here today for requested visit. Patient is covering provider for his PCP Dr. Saez called the office yesterday and requested for patient to be seen in the office due to increasing liver enzymes. Patient reports that he has been feeling fairly well. Last seen in 2022 after his colonoscopy. At that time his liver enzymes were normal, however patient does have a history previously of elevated liver enzymes. Viral study completed and negative. Patient admits that he has not lost that much weight. Patient lost 7 lb in the last 2 years. Patient admits that he was not eating healthy, however he started eating better after was told that his liver enzymes were going up. Patient is trying to stay away from fried food. No family history of liver cirrhosis or any other liver disease. Patient reports no significant GI concerning symptoms. His hemorrhoids are being managed. Denies any melena, hematochezia. Denies any dyspepsia, dysphagia or odynophagia. Patient does report to have occasional constipation and then diarrhea depending on what he eats. Patient is trying to drink enough fluids. Denies any other GI concerning symptoms. [facility] Medical History (Updated 05/16/24 @ 20:[address] [facility]) Hepatic steatosis Transaminitis Anxiety HTN (hypertension) External hemorrhoids with complication SHIELA (obstructive sleep apnea) Obesity (BMI 30-39.9) Surgical History Hx of colonoscopy Hx of neck surgery Hx of appendectomy Family History Father Diabetes Mother Heart disease Diabetes COPD (chronic obstructive pulmonary disease) Maternal Grandfather Diabetes Maternal Grandmother Diabetes Heart attack Social History Alcohol intake: current Alcohol intake frequency: a few times a week Patient Tobacco Use Status: Current someday Tobacco user Tobacco use type: Cigarette Cigarette Packs Per Day: 0.5 Cigarettes Per Day: 10.0 Years Smoked: 30 Substance Use Type: Marijuana Review of Systems Const Denies weight gain and Denies weight loss ENT Reports no additional complaints, Denies dysphagia and Denies odynophagia Card Reports no additional complaints Resp Reports no additional complaints GI Denies abdominal pain, Denies belching, Denies melena, Denies bloating, Denies change in bowel habits, Denies dysphagia, Denies excessive flatus, Denies dyspepsia, Denies heartburn, Denies diarrhea, Denies loose stools, Denies nausea, Denies odynophagia and Denies vomiting Reports no additional complaints Musc Reports no additional complaints Neuro Reports no additional complaints Psych Reports no additional complaints Endo Reports no additional complaints Physical Exam Vital Signs: Last Vital Signs Pulse 68 04/28/24 12:26 BP 138/88 04/28/24 12:26 Pulse Ox 96 04/28/24 12:26 Oxygen Delivery Method Room Air 04/28/24 12:26 BMI result Body Mass Index 34.2 Const General: healthy appearing and no acute distress Nutritional Appearance: well nourished and obese Orientation/consciousness: patient oriented x3 Resp Effort & Inspection: normal respiratory effort, able to speak in complete sentences, no tracheal deviation and symmetric chest movement Auscultation: clear to auscultation bilaterally Cardio Rate: regular rate GI Inspection: Yes normal to inspection, No distended and Yes obesity Palpation (GI): Soft to palpation, not firm, nontender and No hepatosplenomegaly present Auscultation: normal bowel sounds General: Yes no CVA tenderness Back/Spine/Pelvis Back: no CVA tenderness Skin General skin exam: elasticity normal, turgor normal and dry skin Neuro General: patient oriented x3 Psych Appearance: grossly normal Mental Status: mental status grossly normal Results Reviewed Results Reviewed: Laboratory Tests 06/23/23 04/14/24 12:06 11:51 Total Bilirubin 1.2 H 1.1 H AST 54 H 66 H ALT 108 H 181 H Assessment & Plan Assessment & Plan (1) Diverticulosis: Code(s): K57.90 - Diverticulosis of intestine, part unspecified, without perforation or abscess without bleeding Category: Medical (2) Transaminitis: Code(s): R74.01 - Elevation of levels of liver transaminase levels Category: Medical (3) Internal hemorrhoids without complication: Code(s): K64.8 - Other hemorrhoids (4) Constipation: Code(s): K59.00 - Constipation, unspecified Qualifiers: Constipation type: slow transit constipation Qualified Code(s): K59.01 - Slow transit constipation (5) Hepatic steatosis: Code(s): K76.0 - Fatty (change of) liver, not elsewhere classified Category: Medical Plan Will rule out autoimmune disorders. Will check ultrasound with elastography, will check liver fibrosis panel. In 2023 patient had abdominal ultrasound that showed normal size liver, increased echogenicity possible hepatic steatosis. Patient was encouraged to change his diet to low-fat, low-salt, low carb and high protein. Exercise and weight loss encouraged. Patient will return in 3 months, sooner on as needed basis. Patient is agreeable to this plan and verbalizes understanding of instructions. He was given the opportunity to ask questions and all questions answered. Thank you for allowing me to participate in his care Orders: Orders Soluble Liver Ag Autoantibody 04/28/24 K74.60 - Unspecified cirrhosis of liver C Reactive Protein 04/28/24 K58.9 - Irritable bowel syndrome, unspecified HIV Ab/Ag 04/28/24 R79.89 - Other specified abnormal findings of blood chemistry Erythrocyte Sedimentation Rate 04/28/24 R7.89 - Other specified abnormal findings of blood chemistry Mitochondrial Antibody 04/28/24 R7.89 - Other specified abnormal findings of blood chemistry US abdomen piedra w elastography 04/28/24 K76.0 - Fatty (change of) liver, not elsewhere classified Alpha Fetoprotein 04/28/24 R7.89 - Other specified abnormal findings of blood chemistry Hepatitis A,B,C Profile 04/28/24 R7.89 - Other specified abnormal findings of blood chemistry Prothrombin Time INR 04/28/24 R74.8 - Abnormal levels of other serum enzymes Smooth Muscle Antibody 04/28/24 R79.89 - Other specified abnormal findings of blood chemistry Ceruloplasmin 04/28/24 R79.89 - Other specified abnormal findings of blood chemistry Transglutaminase IgA 04/28/24 R10.9 - Unspecified abdominal pain Liver Fibrosis Pnl 04/28/24 K76.0 - Fatty (change of) liver, not elsewhere classified Ferritin 04/28/24 R74.8 - Abnormal levels of other serum enzymes Gamma Glutamyl Transpeptidase 04/28/24 R74.8 - Abnormal levels of other serum enzymes Coding Level of Care Code Est Pt Level 4 (62068) Complex EM visit Add On G2211 Diagnoses Diverticulosis K57.90 Transaminitis R74.01 Internal hemorrhoids without complication K64.8 Slow transit constipation K59.01 Constipation type: slow transit constipation Hepatic steatosis K76.0 Time Spent (min) 40 Comment 25 minutes spent with patient and additional 10 minutes spent reviewing his records
[2024-04-28 12:26] VITALS: BP 138/88; PULSE 68; O2SAT 96; BMI 34.2
--- OUTSIDE RECORDS SUMMARY | 2024-04-28 14:22 | XMS_ITS | Data Portability ---
Author Organization [employer] ([facility])Expres s, [address] Address [address] [place] [address] Assessment No assessment recorded. Plan of Treatment Reminders Order Date Submit Date Provider Last Modified By Organization Details Last Modified Time Details Appointments None record ed. Lab None record ed. Referral None record ed. Procedures None record ed. Surgeries None record ed. Imaging None record ed. Medication Orders None record ed. Patient TargetsNo targets recorded. Patient InstructionsNo instructions recorded. Reason for Referral None Reported. Procedures Surgical History Date Name Laterality Status Provider Name and Address Organization Details Recorded Time OC-UDS Send Out Template NON DOT completed JEROME ANNA [employer] 05/04/2022 19:07:15 Imaging Results None recorded. Procedure Notes None recorded. Medical Equipment None Reported. Medications Name Sig Start Date Stop Date Status Note LastModified by Organization Details LastModified Time losartan 50 mg tablet TAKE 1 TABLET BY MOUTH EVERY DAY active Not Available Not Available No t Available hydrocortiso ne 2.5 % topical cream with perineal applicator APPLY RECTALLY 4 TIMES A DAY NEEDED FOR HEMORRHOIDS active Not Available Not Available Not Available sulfacetamid e sodium 10 % eye drops INSTILL 2 DROPS INTO AFFECTED EYE FOUR TIMES A DAY active Not Available Not Available Not Available docusate sodium 100 mg capsule TAKE 1 CAPSULE BY MOUTH BEDTIME NEEDED FOR CONSTIPATIO N active Not Available Not Available No t Available omeprazole 20 mg capsule,duarte yed release TAKE 1 CAPSULE BY MOUTH EVERY DAY active Not Available Not Available No t Available tadalafil 5 mg tablet TAKE 1 TABLET BY MOUTH ONCE DAILY active Not Available Not Available No t Available Gavilax 17 gram/dose oral powder MIX 17 GRAMS WITH LIQUID AND TAKE BY MOUTH ONCE DAILY active Not Available Not Available No t Available Vitals None Recorded Social History None recorded. Functional Status None recorded. Mental Status None recorded. Family History Nothing Reported. Medical History No medical history recorded. Past Encounters Encounter ID Performer Location Encounter Start Date Encounter Closed Date Diagnosis/Indication Diagnosis SNOMED-CT Code Diagnosis ICD10 Code Diagnosis Note [id number] [address] [place] [address] 09/20/2019 11:58:32 09/20/2019 12:21:34 [id number] [place] [address] [place] [address] 05/04/2022 18:39:13 05/04/2022 19:13:25 History and physical examination, occupation 578361026 Z02.1 Health Concerns Section Related Observation LastModified by Organization Detai ls LastModified Time None Recorded Concern Status LastModified by Organization Details LastModified Time None Recorded Advance Directives Directive None Recorded Payers Encounter Date Sequence Insurance Name Policy Number Policy Arellano Covered Member ID Arellano Member ID Guarantor Name 09/20/2019 1 [place] - [facility] (MEDICAID) [place] Bang [id number] [place] Bang 05/04/2022 [employer] [place] Bang
--- OUTSIDE RECORDS SUMMARY | 2024-04-28 14:22 | XMS_ITS | Clinical Summary ---
Author Organization [facility] Address [address] [place] [address] Care Team Providers Care Parts Cataloguer Name Role Phone Jerod Salazar MD Primary Care Provider [phone] Surgical History Surgery Date Site/Laterality Comments NECK [...] age to complete this topic Care Teams Parts Cataloguer Relationship Specialty Start Date End Date Jerod Salazar MD [address] [place] [address] Dr Vitaliy [place] PCP - General Informatica Mdm Architect 10/23/20
== END 2024-04-28 12:53 | disposition home or self-care (01) ==
PROVIDERS: PCP Internal Medicine; Visit Provider Nurse Practitioner Family
DX: K57.90 Diverticulosis of intestine, part unspecified, without perforation or abscess without bleeding (principal); R74.01 Elevation of levels of liver transaminase levels; K64.8 Other hemorrhoids; K59.01 Slow transit constipation; K76.0 Fatty (change of) liver, not elsewhere classified
CPT/HCPCS: 99214

== ENCOUNTER → 2024-04-28 12:08 | Outpatient (BNVA) | payer MEDICAID, SELFPAY | PROVIDERS: PCP Internal Medicine; Visit Provider Nurse Practitioner Family | DX: K57.90 Diverticulosis of intestine, part unspecified, without perforation or abscess without bleeding (principal); R74.01 Elevation of levels of liver transaminase levels; K64.8 Other hemorrhoids; K59.01 Slow transit constipation; K76.0 Fatty (change of) liver, not elsewhere classified | CPT/HCPCS: 99212 ==

== ENCOUNTER 2024-05-31 11:41 | Outpatient (REF) | payer MEDICAID, SELFPAY ==
[2024-05-31 12:28] LABS: INTERNATIONAL NORM RATIO 0.9 (0.9-1.1); Prothrombin Time 10.4 SEC (10.9-12.4)
[2024-05-31 12:45] LABS: C Reactive Protein 0.25 mg/dL (< or = 0.50)
[2024-05-31 12:53] LABS: Gamma Glutamyl Transpeptidase 192 U/L (11-51)
[2024-05-31 12:56] LABS: Erythrocyte Sedimentation Rate 7 MM/HR (0-15)
[2024-05-31 13:00] LABS: HBc Num1 0.07 S/CO (0.00-0.79); HBsAGNum1 0.26 S/CO (0.00-0.99); HIV AB/AG Nonreactive (Nonreactive); HIV Num 1 0.06 S/CO (0.00-0.99); Hepatitis B Core Antibody Nonreactive (Nonreactive); Hepatitis B Surface Antigen Negative (Negative); ~HepC Num1 0.16 S/CO (0.00-0.79); ~Hepatitis A Antibody IgM Nonreactive (Nonreactive); ~Hepatitis B Surface Antibody NONREACTIVE (Nonreactive); ~Hepatitis C Antibody Nonreactive (Nonreactive)
[2024-05-31 13:01] LABS: Ferritin 574 ng/mL (20-250)
--- OUTSIDE RECORDS SUMMARY | 2024-05-31 14:16 | XMS_ITS | Clinical Summary ---
Author Organization [facility] Address [address] [place] [address] Care Team Providers Care Hull Inspector Name Role Phone Jerod Salazar MD Primary Care Provider [phone] Surgical History Surgery Date Site/Laterality Comments NECK [...] age to complete this topic Care Teams Hull Inspector Relationship Specialty Start Date End Date Jerod Salazar MD [address] [place] [address] Dr Vitaliy [place] PCP - General Working Manager 10/23/20
--- OUTSIDE RECORDS SUMMARY | 2024-05-31 14:16 | XMS_ITS | Data Portability ---
Author Organization [employer], [address] Address [address] [place] [address] Assessment No assessment recorded. Plan of Treatment [...] Out Template NON DOT completed JEROME ANNA [employer] 05/04/2022 19:07:15 Imaging Results None recorded. Procedure [...] SNOMED-CT Code Diagnosis ICD10 Code Diagnosis Note [id number] [address] [place] [address] 09/20/2019 11:58:32 09/20/2019 12:21:34 [id number] [place] [address] [place] [address] 05/04/2022 18:39:13 05/04/2022 19:13:25 History and physical examination, occupation [id number] Z02.1 Health Concerns Section Related Observation LastModified by Organization Detai ls LastModified Time None Recorded Concern Status LastModified by Organization Details LastModified Time None Recorded Advance Directives Directive None Recorded Payers Encounter Date Sequence Insurance Name Policy Number Policy Arellano Covered Member ID Arellano Member ID Guarantor Name 09/20/2019 1 [place] - [facility] (MEDICAID) [place] Bang [id number] Israel Bang 05/04/2022 [employer]CREEN [employer] [place] Bang
[2024-06-02 13:39] LABS: Alpha Fetoprotein 4.2 ng/mL (<6.1)
[2024-06-02 21:03] LABS: Transglutaminase IgA <1.0 U/mL
[2024-06-03 02:37] LABS: Ceruloplasmin 30 mg/dL (14-30)
[2024-06-04 04:58] LABS: Smooth Muscle Antibody <20 U (<20)
[2024-06-06 09:29] LABS: Mitochondrial Antibodies NEGATIVE (NEGATIVE)
[2024-06-06 13:13] LABS: Soluble Liver Ag Autoantibody <20.1 U (0.0-20.0)
[2024-06-06 14:39] LABS: FIB-ALT 118 U/L (9-46); FIB-Alpha-2-Macroglobulin 122 mg/dL (106-279); FIB-Apolipoprotein A1 187 mg/dL (94-176); FIB-GGT 156 U/L (3-95); FIB-Haptoglobin 162 mg/dL (43-212); FIB-Total Bilirubin 0.6 mg/dL (0.2-1.2); Liver Fibrosis Score 0.12; Liver Fibrosis Stage F0; Nec Inflam Act Grade A2; Nec Inflam Act Score 0.57; Reference ID 5424579
== END 2024-05-31 11:42 | disposition home or self-care (01) ==
LOC: HO.LAB 11:41
PROVIDERS: PCP Internal Medicine; Visit Provider Nurse Practitioner Family
DX: R79.89 Other specified abnormal findings of blood chemistry (principal); R10.9 Unspecified abdominal pain; R74.8 Abnormal levels of other serum enzymes; K74.60 Unspecified cirrhosis of liver; K58.9 Irritable bowel syndrome, unspecified; K76.0 Fatty (change of) liver, not elsewhere classified
CPT/HCPCS: 36415; 81596; 82105; 82390; 82728; 82977; 83520; 85610; 85652; 86015; 86140; 86364; 86381; 86704; 86706; 86709; 86803; 87340; 87389

== ENCOUNTER 2024-11-07 14:39 | Outpatient (AMB) | payer MEDICAID, SELFPAY ==
[2024-11-07 08:17] VITALS: BP 136/80; PULSE 72; TEMP 36.4; O2SAT 98; BMI 34.4
--- NOTE | 2024-11-07 08:17 | A.OFFPC_ITS ---
Vital Signs 11/07/24 08:17 Height 5 ft 10 in Weight 240 lb BMI 34.4 BP 136/80 Blood Pressure Location Lt brachial Position Sitting Pulse 72 Pulse Source Pulse Oximeter Temp 97.5 F Temp Source Temporal Artery Scan Pulse Oximetry (%) 98 Oxygen Delivery Method Room Air Intake Visit Reasons: Routine / Dr Salazar Public Health Specialist Required: No Accompanied by: Self / Same As Patient Allergies penicillin G Allergy (Unknown, Verified 11/07/24 08:18) unknown Medication List - Last Reconciled 11/13/24 by ALMA Molina hydroxyzine pamoate 25 mg PO BID PRN losartan 50 mg PO DAILY omeprazole 20 mg PO DAILY tadalafil 5 mg PO DAILY Tobacco use date assessed: 11/07/24 Dental Screening Dental Screen Date: 11/07/24 Did you have a dental visit in the last 12 months?: No Did you have a dental problem in the last 6 months where you did not have access to dental care?: No HPI HPI Comments History of Present Illness Details The patient is a 48-year-old male presenting for management of multiple chronic conditions including sleep apnea, diverticulosis, essential hypertension, gastroesophageal reflux disease, anxiety disorder, and fatty liver disease. The patient has a history of sleep apnea but is not currently using a CPAP machine. He reports improved sleep quality by adjusting his sleeping position. He underwent a colonoscopy in 2022, which revealed diverticulosis. He experiences abdominal pain and diarrhea if he consumes certain foods, but he manages these symptoms through dietary control. The patient is on losartan for essential hypertension, which is well-controlled. His BP today was 136/80. He also takes omeprazole for gastroesophageal reflux disease. For anxiety, he was previously prescribed alprazolam, which he uses sparingly, and buspirone, which was ineffective. He experiences anxiety-related insomnia, waking up anxious after a few hours of sleep, occurring two to three times a week. The patient was diagnosed with fatty liver disease following an ultrasound due to elevated liver enzymes. He has been advised to follow up with blood work to monitor his liver function. He has been managing his weight through intermittent fasting and a low-carb diet, which initially helped him lose weight, but he has recently regained some weight. He is attempting to resume his previous dietary habits to manage his weight and fatty liver disease. [facility] Medical History (Updated 09/15/25 @ 07:50 by ALMA Molina) Anxiety External hemorrhoids with complication GERD without esophagitis Health care maintenance Hepatic steatosis HTN (hypertension) Obesity (BMI 30-39.9) SHIELA (obstructive sleep apnea) Transaminitis Surgical History Hx of appendectomy Hx of colonoscopy (~03/06/22) Hx of neck surgery Family History Father Diabetes Mother Heart disease Diabetes COPD (chronic obstructive pulmonary disease) Maternal Grandfather Diabetes Maternal Grandmother Diabetes Heart attack Social History Housing: House Alcohol intake: current Alcohol intake frequency: a few times a week Patient Tobacco Use Status: Current someday Tobacco user Tobacco use type: Cigarette Cigarette Packs Per Day: 0.5 Cigarettes Per Day: 10.0 Years Smoked: 30 e-Cigarette/Vaping Use: Currently Using (socially ) Substance Use Type: Marijuana service: No Current occupational status: unemployed Cognitive needs: No Hearing needs: No Vision needs: Yes (reading glasses) Questionnaire PHQ-9 Over the last 2 weeks, how often have you been bothered by any of the following problems? 1. Little interest or pleasure in doing things: not at all 2. Feeling down, depressed, or hopeless: several days (sometimes anxiety ) 3. Trouble falling or staying asleep, or sleeping too much: nearly every day (trouble staying asleep ) 4. Feeling tired or having little energy: several days (sometimes little energy) 5. Poor appetite or overeating: not at all 6. Feeling bad about yourself - or that you are a failure or have let yourself or your family down: not at all 7. Trouble concentrating on things, such as reading the newspaper or watching television: not at all 8. Moving or speaking so slowly that other people could have noticed. Or the opposite - being so fidgety or restless that you have been moving around a lot more than usual: not at all 9. Thoughts that you would be better off or of hurting yourself in some way: not at all Total score: 5 Source: Developed by Drs. Khris Rai, HeenaLexx Benson and colleagues, with an educational sandi from [employer]. Thrive Questionnaire Date Thrive assessed: 11/07/24 I am a: Patient Within the past 12 months, did the food you bought not last and you didn't have the money to get more?: Never true Within the past 12 months, did you worry whether your food would run out before you got money to buy more?: Never true Do you have trouble paying for medicines?: No Do you have trouble getting transportation to medical appointments?: No Do you have trouble paying your heating and electricity bill?: No Do you have trouble taking care of your child, family member or friend?: No Do you have trouble with day-to-day activities such as bathing, preparing meals, shopping, managing finances, etc.?: No Are you currently unemployed and looking for a job?: No Are you interested in more education?: No THRIVE Score: 0 AUDIT C Alcohol Use Questionnaire (AUDIT-C) 1. How often do you have a drink containing alcohol?: Monthly or less 2. How many drinks containing alcohol do you have on a typical day when you are drinking?: 1 or 2 3. How often do you have six or more drinks on one occasion?: Less than monthly Total Score: 2 SILVER-7 AMB Questionnaire SILVER-7 Date SILVER - 7 assessed: 11/07/24 Feeling nervous, anxious, or on edge: 0 = Not at all Not being able to stop or control worryin = Not at all Worrying too much about different things: 0 = Not at all Trouble relaxin = Not at all Being so restless that it is hard to sit still: 0 = Not at all Becoming easily annoyed or irritable: 0 = Not at all Feeling afraid as if something awful might happen: 0 = Not at all Total SILVER-7 score (0-4 normal; 5-9 mild; 10-14 moderate; 15-21 severe): 0 Source: Developed by Drs. Khris Rai, Lexx Leach and colleagues, with an educational sandi from [employer]. Review of Systems Const Details: CONSTITUTIONAL Negative HEAD/NECK Negative EAR/NOSE/MOUTH/THROAT Negative RESPIRATORY Reports sleep apnea, not using CPAP machine CARDIOVASCULAR Negative GASTROINTESTINAL Reports abdominal pain and diarrhea with certain foods, diverticulosis diagnosed NEUROLOGICAL Negative PSYCHIATRIC Reports anxiety-related insomnia, waking up anxious after a few hours of sleep Physical exam (Primary Care) Vital Signs: Last Vital Signs Temp 97.5 F 11/07/24 08:17 Pulse 72 11/07/24 08:17 BP 136/80 11/07/24 08:17 Pulse Ox 98 11/07/24 08:17 Oxygen Delivery Method Room Air 11/07/24 08:17 BMI result Body Mass Index 34.4 GENERAL Well developed, obese, in no apparent distress HEENT Head-Normocephalic Eyes- PERRLA, EOMI, Conjuctiva clear, lids WNL Ears- Canals clear, TMs WNL Mouth/Throat-No lesions, no erythema, no exudate Neck- Supple, No lymphadenopathy, thyroid WNL RESPIRATORY Normal I:E, Clear to auscultation CARDIOVASCULAR Regular, rate and rhythm, No murmurs or rubs GASTROINTESTINAL Soft, nontender, normal bowel sounds, no masses NEUROLOGICAL Gait normal PSYCHIATRIC Oriented to person, place and time Mood and affect anxious Appearance WNL Speech WNL Thought processes WNL Tobacco/Smoking Status: Tobacco use Status Tobacco use date assessed 11/07/24 11/07/24 08:19 Patient Tobacco Use Status Current someday Tobacco 11/07/24 08:19 Tobacco use type Cigarette 11/07/24 08:19 e-Cigarette/Vaping Use Currently Using (socially ) 11/07/24 14:54 PHQ-9: PHQ-9 Score PHQ-9: Total score 5 11/07/24 17:04 Thrive Assessment: Date of Thrive Assessment Date Thrive assessed 11/07/24 11/07/24 08:19 Results Reviewed Results Reviewed: - Labs: Elevated liver enzymes indicating fatty liver disease - Imaging: Ultrasound confirmed fatty liver disease Coding Level of Care Code New Pt New Pt Level 4 (81294) Patient Type New Diagnoses Primary hypertension I10 Hypertension type: primary hypertension Anxiety F41.9 Hepatic steatosis K76.0 Obesity (BMI 30-39.9) E66.9 SHIELA (obstructive sleep apnea) G47.33 GERD without esophagitis K21.9 Diverticulosis K57.90 Time Spent (min) 35 Comment Time Spent on chart review, H&P, Patient education, placing orders and documentation Assessment & Plan Assessment & Plan (1) HTN (hypertension): Comment: BP today was 136/80 Code(s): I10 - Essential (primary) hypertension Category: Medical Qualifiers: Hypertension type: primary hypertension Qualified Code(s): I10 - Essential (primary) hypertension Plan: The patient's essential hypertension is well-controlled with losartan. No changes to the current management plan were discussed. Patient to follow up in 6 months or sooner if needed. (2) Anxiety: Code(s): F41.9 - Anxiety disorder, unspecified Category: Medical Plan: The patient was previously prescribed alprazolam for anxiety, which he uses sparingly. A switch to Hydroxyzine was discussed to help manage anxiety and improve sleep quality. Patient to follow up in 6 weeks or sooner if symptoms persist or worsen. (3) Hepatic steatosis: Code(s): K76.0 - Fatty (change of) liver, not elsewhere classified Category: Medical Plan: The patient was diagnosed with fatty liver disease following elevated liver enzymes and an ultrasound. Follow-up blood work was recommended to monitor liver function. (4) Obesity (BMI 30-39.9): Comment: BMI today was 34.4 Code(s): E66.9 - Obesity, unspecified Category: Medical Plan: Discussed the health risks of obesity with the patient. Reviewed benefits of even moderate weight loss with the patient. Patient will gradually try and increase exercise to 30-40 min 5-7 times per week. We discussed the patient adding more fruits and vegetables to their diet. Will monitor weight and follow up in 6 weeks. (5) SHIELA (obstructive sleep apnea): Code(s): G47.33 - Obstructive sleep apnea (adult) (pediatric) Category: Medical Plan: The patient is not currently using a CPAP machine for sleep apnea but reports improved sleep quality by adjusting his sleeping position. No immediate changes were discussed during the visit. (6) GERD without esophagitis: Code(s): K21.9 - Gastro-esophageal reflux disease without esophagitis Category: Medical Plan: The patient is currently managing gastroesophageal reflux disease with omeprazole. No changes to the treatment plan were discussed. (7) Diverticulosis: Code(s): K57.90 - Diverticulosis of intestine, part unspecified, without perforation or abscess without bleeding Category: Medical Plan: The patient manages diverticulosis symptoms through dietary control, avoiding foods that trigger abdominal pain and diarrhea. No additional interventions were discussed during the visit. Plan During the visit, we discussed switching the patient's anxiety medication from alprazolam to Vistrel to better manage his anxiety and improve sleep quality. We also planned to conduct follow-up blood work to monitor his liver function due to previously elevated liver enzymes. The patient was advised on dietary management for diverticulosis and weight control strategies to aid in managing fatty liver disease. A follow-up appointment was scheduled in six weeks to assess the effectiveness of the new medication and review lab results. Orders: Orders Lipid Panel 11/07/24 I10 - Essential (primary) hypertension, Z00.00 - Encounter for general adult medical examination without abnormal findings, Z13.220 - Encounter for screening for lipoid disorders Complete Blood Count Auto Diff 11/07/24 K76.0 - Fatty (change of) liver, not elsewhere classified, Z00.00 - Encounter for general adult medical examination without abnormal findings, Z79.899 - Other penitentiary (current) drug therapy Comprehensive Met. Panel 11/07/24 I10 - Essential (primary) hypertension, Z00.00 - Encounter for general adult medical examination without abnormal findings TSH reflex Free T4 11/07/24 I10 - Essential (primary) hypertension, Z00.00 - Encounter for general adult medical examination without abnormal findings Medications: New hydroxyzine pamoate 25 mg PO BID PRN 30 caps 1RF anxiety Refilled tadalafil 5 mg PO DAILY 90 tabs 1RF omeprazole 20 mg PO DAILY 90 caps 1RF losartan 50 mg PO DAILY 90 tabs 1RF Patient Instructions: - Start taking Hydroxyzinel as prescribed for anxiety and sleep issues. - Continue dietary management for diverticulosis and weight control. - Follow up with blood work to monitor liver function. - Schedule a follow-up appointment in six weeks to review medication effectiveness and lab results.
--- OUTSIDE RECORDS SUMMARY | 2024-11-07 17:10 | XMS_ITS | Clinical Summary ---
Author Organization [facility] Address [address] [place] [address] Care Team Providers Care Maintenance Truck Driver Name Role Phone Jerod Salazar MD Primary Care Provider [phone] Surgical History Surgery Date Site/Laterality Comments NECK [...] of 3 - 19+ 3-dose series) 11/19/1994 Depression Screening 03/01/2024 COVID-19 Vaccine ( - 2023-2 5 season) 2024 Influenza Vaccine (#1) 2024 HIB Vaccines Aged Out No longer eligi [...] age to complete this topic Meningococcal B Vaccine Aged Out No l onger eligible based on patient's age to complete this topic Pneumococcal Vaccine: Pediat rics (0 to 5 Years) and At-Risk Patients (6 to 49 Years) Aged Out No longer eligible b ased on patient's age to complete this topic RSV Immunization Patients Un kathy 20 months Aged Out No longer eligible b ased on patient's age to complete this topic Varicella Vaccines Aged Out No longer eligible based on patient's age to complete this topic Care Teams Maintenance Truck Driver Relationship Specialty Start Date End Date Jerod Salazar MD [address] [place] [address] Dr Vitaliy MA PCP - General Community Support Associate 10/23/20
== END 2024-11-07 15:22 | disposition home or self-care (01) ==
LOC: HO.HMCHD 14:40
PROVIDERS: PCP Internal Medicine; Visit Provider Physician Assistant Medical
DX: I10 Essential (primary) hypertension (principal); F41.9 Anxiety disorder, unspecified; K76.0 Fatty (change of) liver, not elsewhere classified; E66.9 Obesity, unspecified; G47.33 Obstructive sleep apnea (adult) (pediatric); K21.9 Gastro-esophageal reflux disease without esophagitis; K57.90 Diverticulosis of intestine, part unspecified, without perforation or abscess without bleeding

== ENCOUNTER → 2024-11-07 14:39 | Outpatient (BNVA) | payer OTHER, SELFPAY | PROVIDERS: PCP Internal Medicine; Visit Provider Physician Assistant Medical | DX: I10 Essential (primary) hypertension (principal); F41.9 Anxiety disorder, unspecified; K76.0 Fatty (change of) liver, not elsewhere classified; E66.9 Obesity, unspecified; Z68.34 Body mass index [BMI] 34.0-34.9, adult; G47.33 Obstructive sleep apnea (adult) (pediatric); K21.9 Gastro-esophageal reflux disease without esophagitis; K57.90 Diverticulosis of intestine, part unspecified, without perforation or abscess without bleeding; Z79.899 Other long term (current) drug therapy; Z13.30 Encounter for screening examination for mental health and behavioral disorders, unspecified; Z13.39 Encounter for screening examination for other mental health and behavioral disorders | CPT/HCPCS: 96127; 99212 ==

== ENCOUNTER 2024-11-21 09:44 | Outpatient (REF) | payer OTHER, SELFPAY ==
--- OUTSIDE RECORDS SUMMARY | 2024-11-21 11:40 | XMS_ITS | Clinical Summary ---
Author Organization [facility] Address [address] [place] [address] Care Team Providers Care Cow Washer Name Role Phone Jerod Salazar MD Primary Care Provider [phone] Surgical History Surgery Date Site/Laterality Comments NECK [...] 5 season) 2024 Influenza Vaccine (#1) 2024 RSV Immunization Adult Patie nts (1 - 1-dose 75+ series) 11/19/2050 HIB Vaccines Aged Out No longer eligi [...] age to complete this topic Care Teams Cow Washer Relationship Specialty Start Date End Date Jerod Salazar MD [address] [place] [address] Dr Vitaliy MA PCP - General Yeast Pumper 10/23/20
[2024-11-21 13:03] LABS: Anion Gap 11 (12-20)
[2024-11-21 13:08] LABS: Alanine Aminotransferase 363 U/L (0-40); Albumin Level 4.3 g/dL (3.5-5.0); Alkaline Phosphatase 73 U/L (39-117); Aspartate Amino Transferase 207 U/L (5-37); Blood Urea Nitrogen 14 mg/dL (9-16); Calcium 9.0 mg/dL (8.4-10.2); Carbon Dioxide 27 mmol/L (22-29); Chloride 105 mmol/L (96-108); Cholesterol 179 mg/dL (<200); Estimated Glomerular Filt Rate > 60; HDL Cholesterol 46 mg/dL (>40); Potassium 4.1 mmol/L (3.3-5.1); Sodium 139 mmol/L (135-145); Total Protein 7.1 g/dL (6.5-8.0); Triglycerides 144 mg/dL (<150)
== END 2024-11-21 09:45 | disposition home or self-care (01) ==
LOC: HO.10HDL 09:44
PROVIDERS: Visit Provider Physician Assistant Medical
DX: Z00.00 Encounter for general adult medical examination without abnormal findings (principal); Z13.220 Encounter for screening for lipoid disorders; I10 Essential (primary) hypertension; K76.0 Fatty (change of) liver, not elsewhere classified; Z79.899 Other long term (current) drug therapy
CPT/HCPCS: 36415; 80053; 80061; 84443; 85025